=== PATIENT | female | born 1960 | race Caucasian/White ===

== ENCOUNTER 2017-03-09 14:48 | Emergency (ER) | payer OTHER ==
--- NOTE | ~2017-03-09 | CR72 ---
[facility]. [facility] A Service of [facility] & [facility] RADIOLOGY TEXT RESULTS PATIENT: DRAKE GALVEZ LOCATION: SED : 56 UNIT #: [id number] AGE: [address]: Skip Yan MD SEX: F ORDER DR: [id number] [place] [id number] E MR#: [id number] Acc #: [id number] NAME: DRAKE GALVEZ : 1960 SEX: F STUDY DATE/TIME: 03/09/2017 14:36 UNIT: SED ROOM: STUDY DESCRIPTION: CR Chest Single View Portable Attending Physician: Skip Yan M.D. Referring Physician: Skip Yan M.D. Ordering Physician: Skip Yan M.D. Primary Care Physician: Mirtha Elizalde M.D. MEDICAL IMAGING REPORT This report is preliminary unless electronic signature is present. EXAM Portable chest 03/09/2017 HISTORY Chest pain and shortness of air today. COMPARISON Chest 07/17/2012. FINDINGS Frontal chest demonstrates clear lungs. No pleural effusion or pneumothorax. Heart size and mediastinum are normal. Pulmonary vasculature normal. IMPRESSION No acute cardiopulmonary findings. Dictated by... Boone Sims M.D. THIS IS AN ELECTRONICALLY VERIFIED REPORT Boone Sims M.D. at 03/10/2017 10:56 AM ALEXIS/rosa TD: 03/10/2017 09:30 JOB #: [id number] MEDICAL IMAGING REPORT Page 1 of 1
--- NOTE | ~2017-03-09 | CT71 ---
[facility] A Service of [facility] RADIOLOGY TEXT RESULTS PATIENT: DRAKE GALVEZ LOCATION: SED : 56 UNIT #: [id number] AGE: [address]: Skip Yan MD SEX: F ORDER DR: [id number] [place] [id number] E MR#: [id number] Acc #: [id number] NAME: DRAKE GALVEZ. : 1960 SEX: F STUDY DATE/TIME: 03/09/2017 14:35 UNIT: SED ROOM: STUDY DESCRIPTION: CT Head Wo Contrast Attending Physician: Skip Yan M.D. Referring Physician: Skip Yan M.D. Ordering Physician: Skip Yan M.D. Primary Care Physician: Mirtha Elizalde M.D. MEDICAL IMAGING REPORT This report is preliminary unless electronic signature is present. EXAM CT head without contrast 03/09/17 IMPRESSION 03/09/2017 HISTORY A 56-year-old female with dizziness beginning today. COMPARISON None. TECHNIQUE This CT exam was performed with one or more of the following radiation dose reduction techniques: automatic exposure control, adjustment of mA and/or kV according to patient size, and iterative reconstruction. Routine unenhanced axial images performed through the brain. FINDINGS No hemorrhage, acute infarction, mass lesion, or abnormal extraaxial fluid collection. No midline shift or focal mass effect. Ventricular system is normal in size and configuration. Mild generalized atrophy. No acute bony abnormality. Mucosal thickening in the left posterior ethmoid air cell. There is near-complete opacification of the left-sided mastoid air cells and partial fluid opacification right-sided mastoid air cells. IMPRESSION 1. No acute intracranial abnormality. 2. Mild age-related atrophy. 3. Near-complete fluid opacification of the left sided mastoid air cells and partial fluid opacification of the right-sided mastoid STS. [facility] A Service [facility] RADIOLOGY TEXT RESULTS PATIENT: DRAKE GALVEZ LOCATION: SED : 56 UNIT #: [id number] AGE: [address]: Skip Yan MD SEX: F ORDER DR: air cells, suggesting acute mastoiditis. Dictated by... Boone Sims M.D. THIS IS AN ELECTRONICALLY VERIFIED REPORT Boone Sims M.D. at 03/10/2017 10:56 AM ALEXIS/darius TD: 03/10/2017 09:43 JOB #: [id number] MEDICAL IMAGING REPORT Page 1 of 1
--- NOTE | ~2017-03-09 | EKG ---
PATIENT: DRAKE GALVEZ UNIT #: [id number] Ventricular Rate: 95 BPM Atrial Rate: 95 BPM P-R Interval: 152 ms QRS Duration: 74 ms Q-T Interval: 344 ms QTC Calculation(Bezet): 432 ms P [place]: 48 degrees Calculated R [place]: 25 degrees Calculated T [place]: 33 degrees Diagnosis Line: Normal sinus rhythm Diagnosis Line: Normal ECG Diagnosis Line: When compared with ECG of 17-JUL-2012 10:42, Diagnosis Line: Vent. rate has increased BY 33 BPM Diagnosis Line: Confirmed by MATT PHELAN MD ([id number]) on 03/21/2017 Diagnosis Line: 11:46:14 AM INTERPRETING MD: ZHANE MARROQUIN
[2017-03-09 14:39] LABS: BASOPHIL% 0.5 % (0-2.5); EOSINOPHIL# 0.1 X10e3 (0-0.7); EOSINOPHIL% 1.6 % (0.0-7.0); HEMATOCRIT 37.5 % (35.0-45.0); HEMOGLOBIN 12.7 gm/dL (12.0-16.0); LYMPHOCYTE# 2.6 X10e3 (1.0-3.5); LYMPHOCYTE% 33.4 % (17.0-45.0); MEAN CELL VOLUME 92.6 FL (83-96); MEAN CORPUSCULAR HEMOGLOBIN 31.4 PG (28-34); MEAN CORPUSCULAR HGB CONC 33.9 g/dL (30-36); MEAN PLATELET VOLUME 9.2 FL (6.5-11.5); MONOCYTE# 0.6 X10e3 (0-1.0); MONOCYTE% 8.2 % (3.0-12.0); NEUTROPHIL# 4.4 X10e3 (1.5-7.1); NEUTROPHIL% 56.3 % (40-75); PLATELET COUNT 242 X10e3 (140-420); RED BLOOD COUNT 4.04 X10e (3.90-5.30); RED CELL DISTRIBUTION WIDTH 14.1 % (11.0-15.5); WHITE BLOOD COUNT 7.9 X10e3 (4.0-10.5)
[2017-03-09 14:40] LABS: POC - CKMB <1.0 ng/mL (0.0-7.9); POC - TROPONIN <0.05 ng/mL (<=0.05)
[2017-03-09 14:44] LABS: DIFF IND NO
[~2017-03-09 14:48] MED LIST: IBUPROFEN800 MG PO; KLONOPIN1 MG PO; OMEPRAZOLE20 M1 PO; PERCOCET5/325 PO; SERTRALINE HCL50 MG PO; SIMVASTATIN20 MG PO; VICODIN 5/1 TAB 5/50 PO
[2017-03-09 14:58] LABS: ALBUMIN SERUM 4.1 g/dL (3.5-5.0); BILIRUBIN, DIRECT 0.1 mg/dL (0.0-0.2); BILIRUBIN,INDIRECT 0.1 mg/dL (0.0-0.9); BILIRUBIN,TOTAL 0.2 mg/dL (0.2-2.0); BUN/CREATININE RATIO 16.25; CALCIUM SERUM 8.6 mg/dL (8.4-10.2); CREATININE SERUM 0.8 mg/dL (0.6-1.4); GLOM FILT RATE Estimated 81.3 mL/min (>60); POTASSIUM 3.9 mmol/L (3.5-5.1); PROTEIN TOTAL SERUM 7.3 g/dL (6.0-8.3)
[2017-03-09 16:03] LABS: POC - CKMB <1.0 ng/mL (0.0-7.9); POC - TROPONIN <0.05 ng/mL (<=0.05)
== END 2017-03-09 16:33 | disposition home or self-care (01) ==
LOC: SED 14:48
PROVIDERS: Emergency Medicine
DX: R55 Syncope and collapse (principal); R00.2 Palpitations; H70.93 Unspecified mastoiditis, bilateral; Z88.2 Allergy status to sulfonamides
CPT/HCPCS: 36415; 70450; 71010; 80048; 80076; 82553; 83880; 84443; 84484; 85025; 93005; 96361; 96365; 99284; 99285; J0696